=== PATIENT | female | born 1990 | race Caucasian/White ===

== ENCOUNTER 2023-09-17 23:46 | Inpatient (IN) | payer OTHER, SELFPAY ==
[2023-09-17] VITALS (7 sets, daily range): BP systolic 89–102; BP diastolic 46–63; BMI 19.8
--- NOTE | 2023-09-17 21:32 | ED.GENMED ---
History of Present Illness
General
Chief Complaint: Chest Pain
Time Seen by Provider: 09/17/23 21:30
Travel History
Have you had any contact with someone who has COVID-19?: No
Do you have any symptoms of coronavirus? Fever > 100 degrees, chills, cough, shortness of breath, sore throat, loss of taste or smell, muscle aches, or headache?: No
History of Present Illness
History of Present Illness:
HPI: The patient presents with general unwell feeling including headache, chest discomfort, nausea, vomiting, no diarrhea. She had some associated shortness of breath as well. She had temperature as high as 103. states that their
4-year-old child has similar symptoms
EXAM:
GENERAL: Well appearing in no distress
HEENT: Moist oral mucosa, normal tongue, no meningeal signs
CARDIOVASCULAR: No murmurs, tachycardic heart rate, regular rhythm, No chest wall tenderness
PULMONARY: No respiratory distress, breath sounds somewhat decreased on the right, wet sounding cough noted
BACK: Although she reports some low back pain, she has no significant tenderness on physical examination
ABDOMEN: Soft with no peritoneal signs, no tenderness
NEUROLOGIC: Excellent strength all extremities, no coordination deficits, she does not
PSYCHIATRIC: Appropriate mental status, normal insight and judgement
EXTREMITIES: Nontender, no edema, moves all extremities equally
SKIN: No rash, no lesions
TIME OF INITIAL ENCOUNTER: 9:50 PM
NUMBER AND COMPLEXITY OF PROBLEMS ADDRESSED AT THE ENCOUNTER
� Chronic conditions affecting care: No significant medical history
� Acute Exacerbation and/or Progression of Chronic Illness: This is an acute problem
� Differential Diagnosis includes: Viral syndrome, pneumonia, doubt meningitis,
AMOUNT AND/OR COMPLEXITY OF DATA TO BE REVIEWED AND ANALYZED
� I performed an independent evaluation of and my interpretation is:
EKG: Sinus 124, normal axis, RSR' pattern with no old to compare
CT:
X-rays: X-ray personally viewed and agree with radiologist interpretation of a significant pneumonia of the right
Laboratory Studies: White count 30.8, hemoglobin 13.6, 5.4% bands
Other:
� Review of other/old records: I reviewed records, hemoglobin in October 2020 was 13.3
� Clinical information was obtained by an independent historian: I spoke to the at bedside
� Prescriptions/Medications Considered but not given:
� Further testing considered but not performed:
RISK OF COMPLICATIONS AND/OR MORBIDITY OR MORTALITY OF PATIENT MANAGEMENT
� Social determinants of health affecting care: Lives at home
� Discussion with other providers: Hospitalist for admission 2330
� Escalation of care including admission/observation vs risk of discharge considered: Will give fluids, Toradol, Zofran and check labs and reassess. Marked leukocytosis. Will admit for IV antibiotics given the abnormality on
chest x-ray. Lactic within normal range. I did order 2 L of fluid.
Past History
Past History
ED Past Medical History: None
ED Past Surgical History: None
Social History
Tobacco: Non-smoker
Personal:
Phy Exam
Physical Exam
Physical Exam:
See HPI
Scores
Heart Score for Chest Pain Patients
STEMI patient?: Not applicable
Course
Orders/Labs/Results
Orders:
Orders
09/17/23 21:09
Electrocardiogram (*1) Urgent
Reason for Study: Chest Pain
Cardiac Monitoring- Treatment ONCE
EKG- Treatment ONCE
IV Insert/Care/Rem.- Treatment PRN
O2 Therapy [RESP] Urgent
Titrate/Wean O2 to maintain O2 sat greater than (%): 90
Special Instructions: Maintain sats >/=90%
Pulse Ox/spot Check [RESP] Urgent
Quantity: 1
Special Instructions: ON ROOM AIR
09/17/23 21:59
0.9% Sodium Chloride 1000 ml [Nss] 1,000 ml IV BOLUS
Ketorolac [Toradol] 15 mg IV NOW STA
Ondansetron Injectable [Zofran] 4 mg IV NOW STA
CR Chest - 2 Views Urgent
Comment:
Reason For Exam: fever
09/17/23 22:07
Complete Blood Count/With Diff Urgent
Comprehensive Metabolic Panel Urgent
Troponin I Urgent
Blood Culture Q30M
CHANTE Source: Blood/Venous
Specimen Description:
Blood Culture Q30M
CHANTE Source: Blood/Venous
Specimen Description:
09/17/23 22:16
COVID-19 Antigen Urgent
Source: Nasal Swab
Influenza A+B Rapid Molecular Urgent
CHANTE Source: Nasal Swab
Specimen Description:
09/17/23 23:01
HCG, Urine Qualitative Screen Urgent
Date Specimen was Collected: 09/17/23
Time Specimen was Collected: 23:01
Comment: ADD ON
Urinalysis Reflex To Culture Urgent
Date Specimen was Collected: 09/17/23
Time Specimen was Collected: 23:01
09/17/23 23:16
HYDROmorphone [Dilaudid] 0.5 mg IV NOW STA
Ondansetron Injectable [Zofran] 4 mg IV NOW STA
09/17/23 23:17
Azithromycin 500 mg/250 ml [Zithromax Infusion] 500 mg in 250 ml IV NOW
CefTRIAXone [Rocephin] 1,000 mg IV NOW STA
09/17/23 23:22
Add On- LAB Urgent
Tests Added?: lactic
09/17/23 23:30
Lactic Acid Urgent
09/17/23 23:32
0.9% Sodium Chloride 1000 ml [Nss] 1,000 ml IV BOLUS
09/17/23 23:40
, Urine Qualitative Screen [HCG, Urine Qualitative Screen] Routine
Test Result ONCE
Abnormal Lab Results
09/17/23 09/17/23
22:07 23:01
WBC 30.8 H 10^3/uL
(4.8-10.8)
RBC 4.13 L 10^6/uL
(4.20-5.40)
Hct 36.4 L %
(37.0-47.0)
MCH 32.9 H pg
(27.0-31.0)
MCHC 37.4 H g/dL
(33.0-37.0)
Abs Immat Gran (auto) 1.7 H 10^3/uL
(0-0.05)
Absolute Neuts (auto) 27.8 H 10^3/uL
(1.4-6.5)
Absolute Lymphs (auto) 0.3 L 10^3/uL
(1.2-3.4)
Absolute Monos (auto) 0.8 H 10^3/uL
(0.1-0.6)
Immature Gran % 5.4 H %
(0-0.5)
Neutrophils % 90.2 H %
(42.2-75.2)
Lymphocytes % 1.1 L %
(20.5-51.1)
Sodium 132 L mmol/L
(135-145)
Potassium 3.2 L mmol/L
(3.5-5.1)
Carbon Dioxide 21 L mmol/L
(22-30)
Creatinine 0.5 L mg/dL
(0.6-1.0)
Glucose 109 H mg/dl
(70-99)
Urine Ketones 1+ A
(Negative)
09/17/23 22:07
09/17/23 22:07
Vital Signs
Initial and Last Documented VS:
Initial Vital Signs
Temp Pulse Resp BP Pulse Ox
97.9 F 135 25 102/63 97
09/17/23 21:11 09/17/23 21:11 09/17/23 21:11 09/17/23 21:11 09/17/23 21:11
Last Documented Vital Signs
Temp Pulse Resp BP Pulse Ox
100.3 F 109 23 100/48 96
09/17/23 22:03 09/17/23 23:52 09/17/23 23:52 09/17/23 23:52 09/17/23 23:52
*Critical Care Note
Total Time (30-74mins, 75-104mins- exclusive of procedures): Not Applicable
ED Attending Note
-
Portions of this chart may have been created with voice recognition software.� Occasional wrong word or��sound alike� substitutions may have occurred due to the inherent limitations of voice recognition software.
Discharge Plan
Departure
Patient Disposition: Admit
Date of Disposition: 09/17/23
Time of Disposition: 23:48
Presentation/result/management discussed w/ accepting MD/DO: Hospitalist
Discharge Problem:
Pneumonia
Interventions
Interventions:
*Risk Screen - Suicide Last Done: 09/17/23 21:11
*General Assessment Last Done: 09/17/23 21:11
*Neglect/Abuse Screening Last Done: 09/17/23 21:11
ED- Fall Risk Assessment Last Done: 09/17/23 23:33
*ED COVID-19 Vaccine History Last Done: 09/17/23 23:02
ED- Cardiac Assessment Last Done: 09/17/23 23:07
[2023-09-17] MEDS: NSS 1000 IV ×2 (22:18→23:47)
[2023-09-17] MEDS: TORADOL 15 MG IV (22:19)
[2023-09-17] MEDS: ZOFRAN 4 MG IV (22:19)
[2023-09-17 22:21] LABS: % Basophils 0.6 % (0-2); % Immature Granulocytes 5.4 % (0-0.5); % Lymphocytes 1.1 % (20.5-51.1); % Monocytes 2.7 % (1.7-9.3); % Neutrophils 90.2 % (42.2-75.2); Absolute Basophils 0.2 10^3/uL (0-0.2); Absolute Immature Granulocytes 1.7 10^3/uL (0-0.05); Absolute Lymphocytes 0.3 10^3/uL (1.2-3.4); Absolute Monocytes 0.8 10^3/uL (0.1-0.6); Absolute Neutrophils 27.8 10^3/uL (1.4-6.5); Hematocrit 36.4 % (37.0-47.0); Hemoglobin 13.6 g/dL (12.0-16.0); Mean Corp Hgb Conc. 37.4 g/dL (33.0-37.0); Mean Corpuscular Hgb 32.9 pg (27.0-31.0); Mean Corpuscular Volume 88.1 fL (81.0-99.0); Mean Platelet Volume 10.2 fL (7.4-10.4); Nucleated Red Blood Cells % 0 %; Platelet Count 278 10^3/uL (130-400); Red Blood Cell Count 4.13 10^6/uL (4.20-5.40); Red Cell Dist. Width 11.9 % (11.5-14.5); White Blood Cell Count 30.8 10^3/uL (4.8-10.8)
[2023-09-17 22:29] LABS: ALT (SGPT) 19 U/L (0-35); AST (SGOT) 24 U/L (14-36); Albumin 3.9 g/dl (3.5-5.0); Alkaline Phosphatase 58 U/L (38-126); Blood Urea Nitrogen 9 mg/dl (7-17); Calcium 9.3 mg/dl (8.4-10.2); Carbon Dioxide 21 mmol/L (22-30); Chloride 100 mmol/L (98-107); Glucose 109 mg/dl (70-99); Potassium 3.2 mmol/L (3.5-5.1); Sodium 132 mmol/L (135-145); Total Bilirubin 0.8 mg/dl (0.2-1.3); Total Protein 6.5 g/dl (6.3-8.2); eGFR > 60.00
[2023-09-17 22:38] LABS: Troponin I < 0.012 ng/ml
[2023-09-17 22:50] LABS: COVID-19 Antigen Negative (Negative)
[2023-09-17 23:09] LABS: Urine Albumin Trace (Neg - Trace); Urine Bilirubin Negative (Negative); Urine Character Clear (Clear); Urine Color Yellow; Urine Glucose Negative (Negative); Urine Ketone 1+ (Negative); Urine Leukocyte Negative (Negative); Urine Nitrite Negative (Negative); Urine Occult Blood Negative (Negative); Urine Urobilinogen Negative (Neg - 1+)
[2023-09-17] MEDS: ZOFRAN IV (23:33)
--- NOTE | 2023-09-17 23:34 | HPS.HSE ---
Family Physician
-
Family Physician: Leigh Patel
Chief Complaint
-
Cough, chest discomfort, fever
History of Present Illness
HPI: 33-year-old female, no known past medical history, presents with 1 day h/o generalized weakness, SOB, fever to 103, productive cough, chest discomfort, nausea/vomiting. states that their 4-year-old child has similar symptoms.
Medical History
Past Medical History
Past Medical History: Reports None
Past Surgical History: Reports None
Social History
Tobacco: Non-smoker
Alcohol: Occasional
Personal:
Living: With Family
Family History
Family History: Not pertinent
Allergies / Home Medications
Allergies reflects when Allergies were last updated in [facility].
Home Medications with original date entered in [facility]
Allergy/Medication List:
Medications on admission are unable to be verified or confirmed at this time.
Review of Systems
-
Respiratory: Reports See HPI and Cough
Abdomen/GI: Reports Nausea and Vomiting; Denies Diarrhea
Physical Exam
Vital Signs
Vital Signs
Temp Pulse Resp BP Pulse Ox
37.9 C 109 23 97/51 98
09/17/23 22:03 09/17/23 23:30 09/17/23 23:30 09/17/23 23:30 09/17/23 23:30
Physical Exam
General: Well Developed, Well Nourished, Comfortable and Conversant
HEENT: NormoCephalic, Moist mucous membranes and Atraumatic
Respiratory: Clear, Crackles and Non Labored Respirations; No Accessory Resp Muscle Use
Cardiac: S1/S2, Regular Rhythm and Tachycardia; No Murmur or Rub
GI: Soft, Non Tender, Non Distended and Normal Bowel Sounds; No Organomegaly
Rectal: Deferred by Provider
Musculoskeletal: No Clubbing, No Cyanosis and No Edema
Skin: No Rash
Neuro: Awake
Psych: Calm and Intact Judgment/Insight
Laboratory Results
-
09/17/23 22:07
09/17/23 22:07
Laboratory Results
Total Bilirubin 0.8 mg/dl (0.2-1.3) 09/17/23 22:07
AST 24 U/L (14-36) 09/17/23 22:07
ALT 19 U/L (0-35) 09/17/23 22:07
Alkaline Phosphatase 58 U/L (38-126) 09/17/23 22:07
Troponin I < 0.012 ng/ml 09/17/23 22:07
Data Reviewed
-
Diagnostic Radiology: Image Personally Visualized and interpreted and Report Reviewed by me
Lab Data: Labs Reviewed by me
Impression/Plan
-
HPI: 33-year-old female, no known past medical history, presents with 1 day h/o generalized weakness, SOB, fever to 103, productive cough, chest discomfort, nausea/vomiting. states that their 4-year-old child has similar symptoms.
CXR:
Severe right basilar pneumonia.
A/P:
# Sepsis POA due to severe right basilar pneumonia/CAP
COVID/flu negative
Follow blood culture, check MRSA screen
Continue empiric antibiotic ceftriaxone and azithromycin
Status post IV fluid bolus in ER, continue with maintenance IV fluid with NSS at 120 cc/hr for BP support
Tylenol for fever
Follow lactic acid that was sent from ER
# Mild hyponatremia
Continue to monitor
# Hypokalemia
replace K
Check mag level in the morning
DVT ppx: Lovenox SQ
FC
[2023-09-17] MEDS: ZITHROMAX INFUSION 250 IV (23:48)
[2023-09-17] MEDS: ROCEPHIN 1000 MG IV (23:48)
[2023-09-17 23:55] LABS: Lactic Acid 1.8 mmol/L (0.7-2.0)
[2023-09-18] VITALS (11 sets, daily range): BP systolic 96–115; BP diastolic 48–74
[2023-09-18] MEDS: DILAUDID 0.5 MG IV
[2023-09-18] MEDS: KCL 40 MEQ PO (00:09)
[2023-09-18 00:14] LABS: HCG, Urine Qualitative Screen Negative
[2023-09-18] MEDS: ZOFRAN 4 MG IV (00:48)
--- NOTE | 2023-09-18 01:02 | W.PN.UPDATE ---
Update Note
Progress Note Update
RN stated patient oxygen status dropped to 86% RA, HR 115, temp 99.5, placed her on 3L and it was 95%, Advised wean to keep O2 above 92%, advised to give xopenex. Patient seen and evaluated, continues to complain of chest pain and SOB, feels better
with the symptoms after the xopanex, states cough continues, will give cough meds, Patient not on any oral contraceptives, no CT chest now to rule out PE, WELLS score for PE 1.5, discussed with Dr. Turpin.
--- NOTE | 2023-09-18 01:02 | EDRN ---
Pt.'s pulse ox. dropped to 86% on Room air while sleeping. Pt. placed on 3LNC, now 92-93, admitting aware. Per admitting, RN to administer neb. tx. once medications are verified by pharmacy.
[2023-09-18] MEDS: XOPENEX 1.25 MG INHALANT SOLUTION INH ×4 (01:19→20:18)
[2023-09-18] MEDS: MUCINEX 1200 MG PO ×3 (01:43→20:35)
[2023-09-18] MEDS: NSS 1000 IV (03:08)
[2023-09-18 05:05] LABS: Hematocrit 34.9 % (37.0-47.0); Hemoglobin 12.7 g/dL (12.0-16.0); Mean Corp Hgb Conc. 36.4 g/dL (33.0-37.0); Mean Corpuscular Volume 90.6 fL (81.0-99.0); Platelet Count 231 10^3/uL (130-400); Red Blood Cell Count 3.85 10^6/uL (4.20-5.40); Red Cell Dist. Width 12.1 % (11.5-14.5)
[2023-09-18 05:33] LABS: Lactic Acid 1.9 mmol/L (0.7-2.0)
[2023-09-18 05:34] LABS: Blood Urea Nitrogen 9 mg/dl (7-17); Calcium 8.1 mg/dl (8.4-10.2); Carbon Dioxide 18 mmol/L (22-30); Chloride 106 mmol/L (98-107); Estimated Creatinine Clearance 107 ml/min; Glucose 102 mg/dl (70-99); Magnesium 1.5 mg/dl (1.6-2.3); Potassium 3.8 mmol/L (3.5-5.1); Sodium 133 mmol/L (135-145); eGFR > 60.00
[2023-09-18] MEDS: TYLENOL 650 MG PO (05:59)
[2023-09-18] MEDS: ATROVENT NEBULES 0.5 MG INH ×3 (07:20→20:18)
--- NOTE | 2023-09-18 07:44 | W.PN.HOSP.TC ---
Today's Communication/Plan
-
see bold
Assessment / Plan
Assessment / Plan
HPI: 33-year-old female, no known past medical history, presents with 1 day h/o generalized weakness, SOB, fever to 103, productive cough, chest discomfort, nausea/vomiting. states that their 4-year-old child has similar symptoms.
CXR:
Severe right basilar pneumonia.
A/P:
#Sepsis POA due to severe right basilar pneumonia/CAP
#Acute hypoxic respiratory insufficiency
COVID/flu negative, urine Legionella/Streptococcus antigen negative
Follow blood culture, check MRSA screen
Continue empiric antibiotic ceftriaxone and azithromycin D2
Status post IV fluid bolus in ER, continue with maintenance IV fluid with NSS at 120 cc/hr for BP support
Currently requiring 2 L of oxygen, wean as tolerated
Lactic acid normal, trend fever and white count
# Mild hyponatremia
Continue to monitor
# Hypokalemia
Repleted and resolved
#Hypomagnesemia
Replete by IV, recheck a.m. labs
DVT ppx: Lovenox SQ
FC
Total time spent to see the patient on the floor, examine the patient, review data and lab results, discuss treatment plan with patient, nursing staff around 35 minutes.
Physical Exam
General: Appears to not feel well, no acute distress
HEENT: Normocephalic, Atraumatic, EOMI, MMM
Respiratory: Clear to Auscultation bilaterally
Cardiac: Normal S1/S2, tachycardic rate and Reg rhythm
GI: Soft, Nontender, Nondistended, Normal Bowel Sounds
Extremities: No Clubbing, Cyanosis, or Edema
Neuro: Nonfocal/Grossly Intact
Psych: Calm, Cooperative
Derm: No Visible lesions
Anticipated Discharge: 24 - 48 hours
Subjective/Interval History
-
Date of Service: September 18, 2023
Patient reports minimal improvement in her fever, shortness of breath, pleuritic chest pain and back pain. Continues to have dyspnea with activity. No nausea, no vomiting.
Objective Data
-
Labs:
Laboratory Results
09/17/23 09/18/23
22:07 04:52
WBC 30.8 H 25.0 H
Hgb 13.6 12.7
Hct 36.4 L 34.9 L
Plt Count 278 231
Sodium 132 L 133 L
Potassium 3.2 L 3.8
Chloride 100 106
Carbon Dioxide 21 L 18 L
BUN 9 9
Creatinine 0.5 L 0.5 L
Glucose 109 H 102 H
Calcium 9.3 8.1 L
Total Bilirubin 0.8
AST 24
ALT 19
Alkaline Phosphatase 58
Vital Signs:
Vital Signs
Temp Pulse Resp BP Pulse Ox
100.8 F H 117 22 113/74 91
09/18/23 05:56 09/18/23 07:23 09/18/23 07:23 09/18/23 06:00 09/18/23 07:23
[2023-09-18] MEDS: MAGNESIUM SULFATE 100 IV (08:50)
[2023-09-18] MEDS: ROXICODONE 5 MG PO ×2 (09:08→18:57)
[2023-09-18] MEDS: NSS IV ×2 (09:09→19:25)
[2023-09-18] MEDS: TYLENOL 1000 MG PO ×2 (13:25→18:56)
[2023-09-18] MEDS: TESSALON PERLES 200 MG PO (18:58)
[2023-09-18] MEDS: MIRALAX PO (21:00)
[2023-09-18] MEDS: MOTRIN 400 MG PO (23:20)
[2023-09-19] VITALS (9 sets, daily range): BP systolic 95–119; BP diastolic 53–76; BMI 21.8
[2023-09-19] MEDS: ROCEPHIN 1000 MG IV ×2 (00:12→23:06)
[2023-09-19] MEDS: ZITHROMAX INFUSION 250 IV (00:12)
[2023-09-19] MEDS: TYLENOL 1000 MG PO ×3 (01:30→17:47)
[2023-09-19] MEDS: NSS IV (02:20)
[2023-09-19 06:07] LABS: Hematocrit 32.7 % (37.0-47.0); Hemoglobin 11.5 g/dL (12.0-16.0); Mean Corp Hgb Conc. 35.2 g/dL (33.0-37.0); Mean Corpuscular Hgb 32.7 pg (27.0-31.0); Mean Corpuscular Volume 92.9 fL (81.0-99.0); Mean Platelet Volume 10.4 fL (7.4-10.4); Platelet Count 212 10^3/uL (130-400); Red Blood Cell Count 3.52 10^6/uL (4.20-5.40); Red Cell Dist. Width 12.2 % (11.5-14.5); White Blood Cell Count 25.6 10^3/uL (4.8-10.8)
[2023-09-19 06:29] LABS: Blood Urea Nitrogen 8 mg/dl (7-17); Calcium 8.5 mg/dl (8.4-10.2); Carbon Dioxide 20 mmol/L (22-30); Chloride 110 mmol/L (98-107); Estimated Creatinine Clearance 107 ml/min; Glucose 87 mg/dl (70-99); Phosphorus 2.3 mg/dl (2.5-4.5); Potassium 3.8 mmol/L (3.5-5.1); Sodium 135 mmol/L (135-145); eGFR > 60.00
[2023-09-19] MEDS: XOPENEX 1.25 MG INHALANT SOLUTION INH ×3 (07:34→20:04)
[2023-09-19] MEDS: ATROVENT NEBULES 0.5 MG INH ×3 (07:34→20:05)
[2023-09-19] MEDS: MUCINEX 1200 MG PO ×2 (09:08→20:16)
[2023-09-19] MEDS: TESSALON PERLES 200 MG PO ×2 (09:08→15:46)
[2023-09-19] MEDS: MIRALAX PO ×2 (09:08→20:12)
--- NOTE | 2023-09-19 09:28 | W.PN.HOSP.TC ---
Today's Communication/Plan
-
see bold
Assessment / Plan
Assessment / Plan
HPI: 33-year-old female, no known past medical history, presents with 1 day h/o generalized weakness, SOB, fever to 103, productive cough, chest discomfort, nausea/vomiting. states that their 4-year-old child has similar symptoms.
CXR:
Severe right basilar pneumonia.
A/P:
#Sepsis POA due to severe right basilar pneumonia/CAP
#Acute hypoxic respiratory insufficiency
COVID/flu negative, urine Legionella/Streptococcus antigen negative
Follow blood culture, check MRSA screen
Continue empiric antibiotic ceftriaxone and azithromycin D3
Status post IV fluid bolus in ER, decrease IV fluid rate
Was requiring 2 L of oxygen, now on room air
Lactic acid normal, trend fever and white count
# Mild hyponatremia
Continue to monitor
# Hypokalemia
Repleted and resolved
#Hypomagnesemia
Repleted and resolved
#Hypophosphatemia
Replete, recheck a.m. labs
DVT ppx: Lovenox SQ
FC
Total time spent to see the patient on the floor, examine the patient, review data and lab results, discuss treatment plan with patient, nursing staff around 35 minutes.
Physical Exam
General: Appears to not feel well, no acute distress
HEENT: Normocephalic, Atraumatic, EOMI, MMM
Respiratory: Clear to Auscultation bilaterally
Cardiac: Normal S1/S2, tachycardic rate and Reg rhythm
GI: Soft, Nontender, Nondistended, Normal Bowel Sounds
Extremities: No Clubbing, Cyanosis, or Edema
Neuro: Nonfocal/Grossly Intact
Psych: Calm, Cooperative
Derm: No Visible lesions
Anticipated Discharge: Within 24 hours
Subjective/Interval History
-
Date of Service: September 19, 2023
Patient reports mild improvement in her breathing. She is now off oxygen. Her pleuritic chest pain is worse today she states. Fevers are improving.
Objective Data
-
Labs:
Laboratory Results
09/19/23
05:45
WBC 25.6 H
Hgb 11.5 L
Hct 32.7 L
Plt Count 212
Sodium 135
Potassium 3.8
Chloride 110 H
Carbon Dioxide 20 L
BUN 8
Creatinine 0.5 L
Glucose 87
Calcium 8.5
Vital Signs:
Vital Signs
Temp Pulse Resp BP Pulse Ox
99.8 F 94 22 95/61 95
09/19/23 01:00 09/19/23 07:40 09/19/23 07:40 09/19/23 01:17 09/19/23 07:40
--- NOTE | 2023-09-19 12:56 | CM ---
CM met with patient in room. CM confirmed demographics. Patient lives independently with . No history of VN, SNF or DME. Patient is active with her PCP. patient uses [facility] for medication coverage.
PLAN: Home no needs.
[2023-09-19] MEDS: ROXICODONE 5 MG PO (17:48)
--- NOTE | 2023-09-19 18:15 | PTCARENOTE ---
Reports feelings 'the chills' and all over body pain, especially back, febrile, 102.1. Given Tylenol and Oxycodone, see MAR.
--- NOTE | 2023-09-19 18:22 | PTCARENOTE ---
AT 17:46 tiger text sent to pharmacy that neutra-phos powder is not stocked in [facility]. Medication not received. Patient transferred to [facility].
[2023-09-19] MEDS: NEUTRA-PHOS POWDER PACKET 250 MG PO ×2 (18:34→22:11)
--- NOTE | 2023-09-19 18:47 | PTCARENOTE ---
received pt from ER via WC; accompanied by ER staff. Pt AAO x3, CARSON well, ambulatory tobed, no c/o weakness/dizziness. VSS. On room air- pulse ox 94%, no c/o SOB. Lungs with decreased BS Rt side 1/3 up posteriorly; occ dry, non-productive cough.
Abd soft, non-tender, BS (+). Pt DTV; will ambulate to BR. Temp 102; face flushed; skin very warm andintact. Oriented to 4East, currently resting in bed. Will continue to monitor.
[2023-09-19] MEDS: ZITHROMAX 500 MG PO (22:10)
[2023-09-19] MEDS: MELATONIN 5 MG PO (22:11)
[2023-09-19] MEDS: STERILE WATER FOR INJECTION 10 ML IV (23:06)
[2023-09-20 03:33] VITALS: BP 117/78
[2023-09-20] MEDS: TYLENOL 1000 MG PO (04:39)
[2023-09-20] MEDS: ROXICODONE 5 MG PO (04:39)
[2023-09-20 07:30] LABS: Hemoglobin 10.9 g/dL (12.0-16.0); Mean Corp Hgb Conc. 35.2 g/dL (33.0-37.0); Mean Corpuscular Hgb 32.2 pg (27.0-31.0); Mean Corpuscular Volume 91.7 fL (81.0-99.0); Mean Platelet Volume 9.9 fL (7.4-10.4); Platelet Count 240 10^3/uL (130-400); Red Blood Cell Count 3.38 10^6/uL (4.20-5.40); Red Cell Dist. Width 12.1 % (11.5-14.5); White Blood Cell Count 13.2 10^3/uL (4.8-10.8)
[2023-09-20 08:00] LABS: Blood Urea Nitrogen 5 mg/dl (7-17); Calcium 8.2 mg/dl (8.4-10.2); Carbon Dioxide 22 mmol/L (22-30); Chloride 106 mmol/L (98-107); Estimated Creatinine Clearance 110 ml/min; Glucose 84 mg/dl (70-99); Phosphorus 3.5 mg/dl (2.5-4.5); Potassium 3.4 mmol/L (3.5-5.1); Sodium 135 mmol/L (135-145); eGFR > 60.00
[2023-09-20] MEDS: ATROVENT NEBULES 0.5 MG INH (08:00)
[2023-09-20] MEDS: XOPENEX 1.25 MG INHALANT SOLUTION INH (08:00)
--- NOTE | 2023-09-20 08:31 | W.PN.HOSP.TC ---
Today's Communication/Plan
-
Discharge on oral antibiotics today
Assessment / Plan
Assessment / Plan
HPI: 33-year-old female, no known past medical history, presents with 1 day h/o generalized weakness, SOB, fever to 103, productive cough, chest discomfort, nausea/vomiting. states that their 4-year-old child has similar symptoms.
CXR:
Severe right basilar pneumonia.
A/P:
#Sepsis POA due to severe right basilar pneumonia/CAP
#Acute hypoxic respiratory insufficiency
COVID/flu negative, urine Legionella/Streptococcus antigen negative
Blood cultures negative, MRSA negative, sputum culture with contamination
Blood pressure normal off of IV fluids
Currently on Rocephin and azithromycin for 3 days
Was requiring 2 L of oxygen, now on room air
Lactic acid normal, leukocytosis improving
Still having fever, overall improved
Suspect she has viral pneumonia with possible superimposed bacterial pneumonia
She feels better overall, and wishes to go home
Will discharge on cefdinir 300 mg twice a day for 4 days, and azithromycin 500 mg daily to complete a 7-day course
Counseled patient to rest, drink plenty of fluids, and follow-up with her PCP in 3-4 days
# Mild hyponatremia
Continue to monitor
# Hypokalemia
Replete
#Hypomagnesemia
Repleted and resolved
#Hypophosphatemia
Repleted and resolved
DVT ppx: Lovenox SQ
FC
Updated at bedside 09/19
Physical Exam
General: Appears to not feel well, no acute distress
HEENT: Normocephalic, Atraumatic, EOMI, MMM
Respiratory: Clear to Auscultation bilaterally
Cardiac: Normal S1/S2, tachycardic rate and Reg rhythm
GI: Soft, Nontender, Nondistended, Normal Bowel Sounds
Extremities: No Clubbing, Cyanosis, or Edema
Neuro: Nonfocal/Grossly Intact
Psych: Calm, Cooperative
Derm: No Visible lesions
Anticipated Discharge: Today
Subjective/Interval History
-
Date of Service: September 20, 2023
Patient feels better overall since admission. Continues to have a cough, pleuritic chest pain, dyspnea with activity. Fever is improved. No vomiting.
Objective Data
-
Labs:
Laboratory Results
09/20/23
07:05
WBC 13.2 H
Hgb 10.9 L
Hct 31.0 L
Plt Count 240
Sodium 135
Potassium 3.4 L
Chloride 106
Carbon Dioxide 22
BUN 5 L
Creatinine 0.5 L
Glucose 84
Calcium 8.2 L
Vital Signs:
Vital Signs
Temp Pulse Resp BP Pulse Ox
99.6 F 102 20 117/78 95
09/20/23 06:11 09/20/23 08:04 09/20/23 08:04 09/20/23 03:33 09/20/23 08:04
I&O
09/19/23 09/20/23 09/21/23
06:59 06:59 06:59
Intake Total 480 / 480
Balance 480 / 480
[2023-09-20 08:47] VITALS: BP 114/74
[2023-09-20] MEDS: KCL 40 MEQ PO (09:52)
[2023-09-20] MEDS: MUCINEX 1200 MG PO (09:52)
[2023-09-20] MEDS: FLUSH (NSS) 1 FLUSH IV (09:53)
[2023-09-20] MEDS: MIRALAX 17 GRAMS PO (09:54)
--- NOTE | 2023-09-20 11:44 | W.DCSUMMARY ---
Discharge Summary
Discharge Data
Date of Admission: 09/17/23
Date of Discharge: 09/20/23
-
Pending Results: No
Hospital Course
Discharge diagnoses:
Sepsis secondary to severe community-acquired pneumonia
Acute hypoxic respiratory sufficiency
Pleuritic chest pain
Sinus tachycardia
Hypokalemia
Hypomagnesemia
Hypophosphatemia
Hyponatremia
CXR: Severe right basilar pneumonia.
Hospital course:
33-year-old female with no known past medical history presents with 1 day of generalized weakness, fever, shortness of breath, productive cough, and pleuritic chest pain. Patient was found to have sepsis secondary to severe right basilar pneumonia.
She was treated with IV Rocephin and azithromycin. She was negative for COVID, negative for influenza, negative for MRSA. Her urine Legionella and urine strep antigen were negative. Blood cultures were negative. Sputum culture showed over
contamination.
Patient had electrolyte abnormalities, these were repleted and resolved.
Despite 3 days of IV antibiotics, she continued to be febrile. Suspect she has a viral infection with probable superimposed bacterial infection. She was requiring 2 L of oxygen, and was successfully weaned to room air. Even though patient still had
fever, she felt better from admission. Her leukocytosis improved dramatically. She has children at home, and the option was given to her to stay for more IV antibiotics versus go home on oral antibiotics. She wished to be discharged on oral
antibiotics. She will be discharged on cefdinir 300 mg twice a day and azithromycin 500 mg p.o. daily to complete a 7-day course. She has been counseled to rest, drink plenty of fluids, and follow-up with her primary care doctor in 3-4 days.
Disposition: Home self-care
Discharge planning: Required 36 minutes
Discharge Plan
-
Patient Disposition: Home (Routine Discharge)
Discharge Diagnosis/Procedures: Sepsis, community-acquired pneumonia
Condition: Fair
Diet: Regular
Activity: As tolerated
Driving Restrictions: As prior to admission
Activity Restrictions/Additional Instructions:
You can start your antibiotics on 09/20/2023.
Take azithromycin 500 mg daily for 4 days, cefdinir 300 mg twice a day for 4 days.
Follow-up with your primary care doctor in 3-4 days
Referrals:
Leigh Patel, [Family Provider] - in three to four days
Prescriptions:
New
levalbuterol HCl 1.25 mg/3 mL Solution For Nebulization
1.25 mg inhalation R TID Qty: 30 0RF
oxycodone 5 mg Tablet
5 mg PO Q4HPRN PRN (Reason: moderate pain) Qty: 20 0RF
cefdinir 300 mg capsule
300 mg PO BID 4 Days Qty: 8 0RF
azithromycin 500 mg tablet
500 mg PO DAILY 3 Days Qty: 4 0RF
benzonatate 100 mg Capsule
200 mg PO TIDPRN PRN (Reason: cough) Qty: 30 0RF
Continued
melatonin 5 mg Tablet
5 mg PO HS PRN (Reason: sleep)
Discharge Orders:
Discharge Patient (As Directed); Ordered 09/20/23
Ordered By: Luis Alfredo Arshad
Discharge Date and Time
Discharge Date/Time: 09/20/23 14:20
Print Language: THAI
--- NOTE | 2023-09-20 11:59 | CM ---
Patient seen in bed, discussed script for nebulizer sent to [facility], will be delivered today. CM confirmed patients address. Patient reports no further needs to CM at this time. CM will continue to follow for discharge planning needs.
Plan; home with family, nebulizer to be delivered today by [facility].
[2023-09-20 12:00] VITALS: BP 116/75
[2023-09-20] MEDS: ROCEPHIN 1000 MG IV (12:21)
[2023-09-20] MEDS: STERILE WATER FOR INJECTION 10 ML IV (12:21)
[2023-09-20] MEDS: ZITHROMAX 500 MG PO (12:22)
[2023-09-20] MEDS: FLUSH (NSS) 2 FLUSH IV (12:23)
== END 2023-09-20 14:20 | disposition home or self-care (01) | DRG 871 ==
LOC: 4 EAST ACU 23:46
PROVIDERS: ADMITTING PHYSICIAN Internal Medicine; ATTENDING PHYSICIAN Family Medicine; EMERGENCY PHYSICIAN Emergency Medicine; FAMILY PHYSICIAN Family Medicine
DX: A41.89 Other specified sepsis (principal); J18.9 Pneumonia, unspecified organism; E87.1 Hypo-osmolality and hyponatremia; E87.6 Hypokalemia; E83.42 Hypomagnesemia; E83.39 Other disorders of phosphorus metabolism; R09.02 Hypoxemia
CPT/HCPCS: 71046; 80048; 80053; 81003; 81025; 83605; 83735; 84100; 84484; 85025; 85027; 87040; 87070; 87205; 87449; 87502; 87811; 87899; 93005; 94640

== ENCOUNTER → 2024-07-01 11:25 | Outpatient (REF) | payer OTHER, SELFPAY | LOC: RAD 11:25 | PROVIDERS: ATTENDING PHYSICIAN Family Medicine | DX: J18.9 Pneumonia, unspecified organism (principal) | CPT/HCPCS: 71046 ==